=== PATIENT | female | born 1980 | race Caucasian/White ===

== ENCOUNTER 2020-02-10 00:03 | Emergency (ER) | payer OTHER, SELFPAY ==
[2020-02-10 00:17] VITALS: BP 137/101; PULSE 118; RESP 20; TEMP 36.8; O2SAT 96; BMI 25.0
--- NOTE | 2020-02-10 00:26 | ED_ITS ---
HPI - Skin/Abscess/Foreign Bdy General Chief complaint: Skin/Abscess/Foreign Body Stated complaint: states has worms Time Seen by Provider: 02/10/20 00:08 Source: patient Mode of arrival: Ambulatory Limitations: no limitations History of Present Illness HPI narrative: Patient concerned that she has contracted parasites/worms. She does have pet cats at home. Adult cats. That are vaccinated. Patient brought in samples with her. In plastic bags these appear to be cat hair, not worms she feels they are in her eyes and mouth. On her face. Related Data Home Medications Medication Instructions Recorded Confirmed bupropion HCl [Wellbutrin SR] 150 mg PO BID #0 08/10/17 dextroamphetamine-amphetamine #0 08/10/17 [Adderall] multivitamin [Multiple Vitamins] #0 08/10/17 Allergies Allergy/AdvReac Type Severity Reaction Status Date / Time Penicillins [PENICILLINS] Allergy Unknown Verified 02/10/20 00:17 Review of Systems Review of Systems Narrative: GENERAL: Denies chills, fatigue, malaise, fever, sweats. HEENT: Denies sinus pain, ear pain, sore throat, difficulty swallowing, dizziness. RESPIRATORY: Denies dyspnea, cough, wheezing, hemoptysis, sputum. CARDIOVASCULAR: Denies chest pain, palpitations, orthopnea, edema, GASTROINTESTINAL: Denies nausea, vomiting, abdominal pain, diarrhea, constipation, melena. : Denies dysuria, frequency, incontinence, hematuria, urinary retention. MUSCULOSKELETAL: denies weakness, joint pain, or bony pain SKIN: Denies rash, skin lesions NEUROLOGIC: Denies weakness, headache, numbness, change in speech, confusion, seizures, incoordination. PSYCHIATRIC: Anxious, no hallucinations auditory or visual ROS Unobtainable: All systems reviewed & are unremarkable except as noted in HPI and below Patient History Social History Smoking Status: Current every day smoker Smoking Status: Current every day smoker tobacco type: cigarettes alcohol intake frequency: a few times a week Substance Use Type: does not use Exam Narrative Exam Narrative: GENERAL: patient appears stated age. Well-nourished, well- developed patient, in no distress, not toxic HEAD: Atraumatic. Normocephalic. EYES: Pupils equal round and reactive. Extraocular motions intact. No scleral icterus. No injection or drainage. No parasites visualized. ENT: Nose without bleeding, purulent drainage. Throat without erythema, tonsillar hypertrophy or exudate. Airway patent. No parasites visualized. NECK: Trachea midline. Non tender CARDIOVASCULAR: Regular rate and rhythm without murmurs, gallops, or rubs. RESPIRATORY: Clear to auscultation. Breath sounds equal bilaterally. No wheezes, rales, or rhonchi. GASTROINTESTINAL: Abdomen soft, non-tender, nondistended. NEURO: AOx4. SKIN: No rash or erythema of visible areas PSYCH: Patient is anxious, is cooperative, not combative. Initial Vital Signs Initial Vital Signs: Vital Signs Temperature 98.2 F 02/10/20 00:17 Pulse Rate 118 H 02/10/20 00:17 Respiratory Rate 20 02/10/20 00:17 Blood Pressure 137/101 H 02/10/20 00:17 Pulse Oximetry 96 02/10/20 00:17 Course Orders Ordered: ED Orders 02/10/20 00:32 Urine Drug Screen, Rapid Stat Vital Signs Vital signs: Vital Signs - 8 hr 02/10/20 00:17 Temperature 98.2 F Pulse Rate 118 H Respiratory Rate 20 Blood Pressure 137/101 H Pulse Oximetry 96 MDM - Skin/Abscess/Foreign Bdy Differential Diagnosis Differential diagnosis: Likely other (Drug abuse/psychosis) Lab Data Attestation: I reviewed the patient's lab results. Labs: Lab Results 02/10/20 Range/Units 00:32 U Opiates 300ng/mL cut Negative (Negative) Ur Oxycodone Screen Negative (Negative) Urine Methadone Screen Negative (Negative) Ur Barbiturates Screen Negative (Negative) U Tricyclic Antidepress Negative (Negative) Ur Phencyclidine Scrn Negative (Negative) Ur Amphetamines Screen Positive H (Negative) U Methamphetamines Scrn Negative (Negative) Ur MDMA Scrn (Ecstasy) Negative (Negative) U Benzodiazepines Scrn Negative (Negative) Urine Cocaine Screen Negative (Negative) U Marijuana (THC) Screen Negative (Negative) Point of Care Testing Test Results Negative MDM Narrative Medical decision making narrative: I reviewed with patient my impression of the samples that she brought in. my opinion is that these are consistent with animal hair. Nurse evaluated as well. Nurse agrees that they are likely animal hairs as well. They are fibrous and with varying colors. Not flesh like Discharge Plan Departure Patient Disposition: Home Clinical Impression: Encounter for medical screening examination Discharge Date/Time: 02/10/20 01:27 Instructions: Animals and Your Health: The Benefits of Pet Ownership Activity Restrictions/Additional Instructions: Return if worse or if any questions or concerns. See family doctor this week for recheck. Prescriptions: No Action bupropion HCl [Wellbutrin SR] 150 MG tablet extended release 12 hr 150 mg PO BID Qty: 0 RF: 0 multivitamin [Multiple Vitamins] 1 EACH tablet Qty: 0 RF: 0 dextroamphetamine-amphetamine [Adderall] 20 mg tablet Qty: 0 RF: 0
[2020-02-10 00:55] LABS: UR Morphine/Opiate cutoff 300 Negative (Negative); Ur Creatinine Normal (Normal); Ur Specific Gravity Normal (Normal); Urine Amphetamines Positive (Negative); Urine Barbiturates Negative (Negative); Urine Benzodiazepines Negative (Negative); Urine Cocaine Negative (Negative); Urine MDMA Negative (Negative); Urine Methadone Negative (Negative); Urine Methamphetamines Negative (Negative); Urine Oxycodone Negative (Negative); Urine Phencyclidine Negative (Negative); Urine Tetrahydrocannabinol Negative (Negative); Urine Tricyclic Antidepressant Negative (Negative); Urine pH Normal (Normal)
== END 2020-02-10 01:27 | disposition home or self-care (01) ==
PROVIDERS: Emergency Provider Emergency Medicine
DX: Z13.9 Encounter for screening, unspecified (principal)
CPT/HCPCS: 80305; 81025; 99282